=== PATIENT | female | born 1995 | race Caucasian/White ===

== ENCOUNTER 2017-03-03 12:46 | Emergency (ER) | payer OTHER | END 2017-03-03 17:37 | disposition home or self-care (01) | LOC: FTE 12:46 | DX: S61.224A Laceration with foreign body of right ring finger without damage to nail, initial encounter (principal); S80.212A Abrasion, left knee, initial encounter; W18.39XA Other fall on same level, initial encounter; Y92.9 Unspecified place or not applicable | CPT/HCPCS: 99283; Z7502 ==